=== PATIENT | male | born 1995 | race Two or more races ===

== ENCOUNTER 2018-06-21 09:55 | Outpatient (CLI) | payer OTHER | END 2018-06-21 10:05 | disposition home or self-care (01) | LOC: LAB 09:55 | DX: R55 Syncope and collapse (principal); R42 Dizziness and giddiness; R00.1 Bradycardia, unspecified ==

== ENCOUNTER 2019-12-22 10:30 | Outpatient (CLI) | payer OTHER | END 2019-12-22 10:42 | disposition home or self-care (01) | LOC: LAB 10:30 | DX: E78.49 Other hyperlipidemia (principal) ==

== ENCOUNTER 2023-01-10 19:39 | Emergency (ER) | payer OTHER ==
[~2023-01-10] VITALS: Ht 182.9 cm; Wt 82.6 kg
[2023-01-10] MEDS ORDERED: INTESTINEX680 M1 PO (22:09)
[2023-01-10] MEDS ORDERED: ONDANSETRON ODT8 MG PO (22:09)
[2023-01-10] MEDS ORDERED: PEPCID AC20 MG PO (22:09)
== END 2023-01-10 22:53 | disposition home or self-care (01) ==
LOC: ER 19:39
DX: R19.7 Diarrhea, unspecified (principal); Z91.013 Allergy to seafood; Z88.8 Allergy status to other drugs, medicaments and biological substances

== ENCOUNTER → 2023-03-28 | Emergency (ER) | payer OTHER ==
[~2023-03-28] VITALS: Ht 182.9 cm; Wt 81.2 kg
[~2023-03-28] MED LIST: INTESTINEX680 M1 PO; ONDANSETRON ODT8 MG PO; PEPCID AC20 MG PO
== END | disposition home or self-care (01) ==
LOC: ER 14:53
DX: S62.165A Nondisplaced fracture of pisiform, left wrist, initial encounter for closed fracture (principal); W19.XXXA Unspecified fall, initial encounter; Y93.89 Activity, other specified; Y92.89 Other specified places as the place of occurrence of the external cause; Y99.8 Other external cause status; Z88.8 Allergy status to other drugs, medicaments and biological substances; Z91.013 Allergy to seafood

== ENCOUNTER 2025-06-01 00:52 | Emergency (ER) | payer OTHER ==
[~2025-06-01] VITALS: Ht 180.3 cm; Wt 81.6 kg
[2025-06-01] MEDS ORDERED: TETANUS & DIPHTHERIA TOX,ADULT 0.5 ML VIAL IM STA (03:37)
== END 2025-06-01 03:47 | disposition home or self-care (01) ==
LOC: ER 00:52
DX: S61.218A Laceration without foreign body of other finger without damage to nail, initial encounter (principal); W45.8XXA Other foreign body or object entering through skin, initial encounter; Y93.89 Activity, other specified; Y92.89 Other specified places as the place of occurrence of the external cause; Y99.8 Other external cause status; Z88.8 Allergy status to other drugs, medicaments and biological substances; Z91.013 Allergy to seafood
CPT/HCPCS: 12001; 90471; 90714; J1670